=== PATIENT | male | born 1985 | race Caucasian/White ===

== ENCOUNTER → 2023-06-23 | Emergency (ER) | payer SELFPAY ==
[~2023-06-23] MED LIST: KETOROLAC 30 MG/ML INJ ONE; LORazepam 2 MG/ML VIAL ONE; NA CHLORIDE 0.9% 1,000 ML ONE
--- OUTSIDE RECORDS SUMMARY | 2023-06-23 19:58 | XMS REPORT | Continuity of Care Document ---
Author Name Unknown Address [address] [place] [address] [facility] [address] [place] [address] Care Team Providers Care Community Development Worker Name Role Phone Pcp, Patient Does Not Have A Primary Care Physic laquita BHARAT MONROY Attending Clinician Unavaila Bharat Colin MD Attending Clinician David Newman MD Attending Clinician [phone] DAVID NEWMAN Admitting Clinician Unavailable Allergies, Adverse Reactions, Alerts Allergy Name Allergy Type Status Severity Reaction(s) Onset Date Inactive Date Treating Clinician Comments Source SULFAMET HOXAZOLE -TRIMETH OPRIM DRUG Active [facility] 10-21 00:00: 00 [facility] Sulfamet hoxazole -Trimeth oprim Propensi ty to adverse reaction s Active [facility]10-21 00:00: 00 [facility] NO KNOWN ALLERGIE S Drug Class Active [facility] Social History Social Habit Start Date Stop Date Quantity Comments Source Exposure to SARS-CoV-2 (event) 2022-10-11 00:00:00 2022-10-21 14:54:00 Not sure [facility] Sex Assigned At 1985 00:00:00 1985 00:00:00 [facility] Smoking Status Start Date Stop Date Source Tobacco smoking consumption unknown [facility] Medications Ordered Medication Name Filled Medication Name Start Date Stop Date Current Medication? Ordering Clinician Indication Dosage Frequency Signature (SIG) Comments Components Source LORazepam (ATIVAN) injection 2 mg 10-21 22:30: 00 10-21 22:20 :00 No 2mg 2 mg, Slow IV Push, ONCE, 1 dose, On Liset 10/21/22 at 1730, Routine [facility] FENTanyl PF (SUBLIMAZE (PF)) injection 25 mcg 10-21 22:30: 00 10-21 22:19 :00 No 25ug 25 mcg, Slow IV Push, ONCE, 1 dose, On Liset 10/21/22 at 1730, Routine [facility] lidocaine 1% (PF) (XYLOCAINE) injection 20 mL 10-21 22:30: 00 10-21 22:21 :00 No 20mL 20 mL, Infiltrati on, ONCE, 1 dose, On Liset 10/21/22 at 1730, Routine [facility] PHENYLephri ne 1000 mcg/10 mL in 0.9% NaCl syringe 1,000 mcg 10-21 21:45: 00 10-21 22:20 :00 No 10mL 1,000 mcg (10 mL), Intramuscu lar, ONCE, 1 dose, On Liset 10/21/22 at 1700, FRANCIA [facility] morpHINE (4 mg/mL) injection 4 mg 10-21 20:30: 00 10-21 21:26 :00 No 4mg 4 mg, Slow IV Push, ONCE, 1 dose, On Liset 10/21/22 at 1530, STAT [facility] terbutaline (BRETHINE) injection 0.5 mg 10-21 20:22: 50 Yes .5mg 0.5 mg, Subcutaneo us, Q20MIN PRN, 2 doses, Starting on Liset 10/21/22 at 1522, Until Discontinu ed, FRANCIA, priapism [facility] ciprofloxac in HCl 500 mg tablet 10-21 00:00: 00 Yes [id number] 500mg Take 1 tablet by mouth in the morning and 1 tablet in the evening. [facility] ciprofloxac in HCl 500 mg tablet 10-21 00:00: 00 10-21 00:00 :00 No [id number] 500mg Take 1 tablet by mouth in the morning and 1 tablet in the evening. Do all this for 21 days. [facility] cefTRIAXone (ROCEPHIN) 1,000 mg in NaCl 0.9% (NS) 100 mL MINI-BAG 10-14 12:00: 00 10-14 12:38 :00 No 1000mg 1,000 mg, IV Piggyback, ONCE, 1 dose, On Liset 10/14/22 at 0700, Administer over 30 Minutes, 100 mL
Reas on for Anti-Infec tive: Documented Infection< br>Documen tereso Infection Site: Other
O ther site: prostate<b r>Duration of Therapy: 7 days [facility] NaCl 0.9% (NS) bolus infusion 1,000 mL 10-14 10:30: 00 10-14 11:23 :00 No 1000mL at 999 mL/hr, 1,000 mL, IV Infusion, ONCE, 1 dose, On Liset 10/14/22 at 0530, FRANCIA [facility] clonazePAM (KLONOPIN) tablet 1 mg 10-14 10:30: 00 10-14 09:55 :00 No 1mg 1 mg, Oral, ONCE, 1 dose, On Liset 10/14/22 at 0530, FRANCIA [facility] iohexol (OMNIPAQUE 350 BULK-100 mL) injection 80 mL 10-14 10:27: 00 10-14 10:27 :00 No [id number] 80mL 80 mL, Intravenou s, ONCE, 1 dose, On Liset 10/14/22 at 0545, Routine [facility] ibuprofen (IBU) tablet 600 mg 10-14 09:45: 00 10-14 09:54 :00 No 600mg 600 mg, Oral, ONCE, 1 dose, On Liset 10/14/22 at 0445, FRANCIA [facility] ibuprofen 600 mg tablet 10-14 00:00: 00 Yes [id number] 600mg Take 1 tablet by mouth every 6 (six) hours as needed for Pain (scale 1-3) or Pain (scale 4-6). [facility] CLONAZEPAM 1 mg tablet 10-14 00:00: 00 Yes [id number] 1mg Take 1 tablet by mouth 3 (three) times daily with meals as needed for Insomnia (anxiety). [facility] ibuprofen 600 mg tablet 10-14 00:00: 00 Yes [id number] 600mg Take 1 tablet by mouth every 6 (six) hours as needed for Pain (scale 1-3) or Pain (scale 4-6). [facility] CLONAZEPAM 1 mg tablet 10-14 00:00: 00 Yes [id number] 1mg Take 1 tablet by mouth 3 (three) times daily with meals as needed for Insomnia (anxiety). [facility] tamsulosin 0.4 mg 24 hr capsule 10-14 00:00: 00 11-12 04:59 :00 No [id number] .4mg Take 1 capsule by mouth at bedtime for 28 days. [facility] tamsulosin 0.4 mg 24 hr capsule 10-14 00:00: 00 11-12 04:59 :00 No [id number] .4mg Take 1 capsule by mouth at bedtime for 28 days. [facility] SULFAMETHOX AZOLE-TRIME THOPRIM 800-160 mg per tablet 10-14 00:00: 00 11-05 04:59 :00 No [id number] 1{tbl} Take 1 tablet by mouth every 12 (twelve) hours for 21 days. [facility] SULFAMETHOX AZOLE-TRIME THOPRIM 800-160 mg per tablet 10-14 00:00: 00 10-21 00:00 :00 No [id number] 1{tbl} Take 1 tablet by mouth every 12 (twelve) hours for 21 days. [facility] Vital Signs Vital Name Observation Time Observation Value Comments S glendy Systolic blood pressure 2022-10-21 23:00:00 102 mm[Hg] [facility] Diastolic blood pressure 2022-10-21 23:00:00 73 mm[Hg] [facility] Heart rate 2022-10-21 23:00:00 110 /min [facility] Respiratory rate 2022-10-21 23:00:00 18 /min [facility] Oxygen saturation in Arterial blood by Pulse oximetry 2022-10-21 23:00:00 100 /min [facility] Body weight 2022-10-21 20:00:00 77.111 kg [facility] Body temperature 2022-10-21 19:54:00 37.39 Jennifer [facility] Systolic blood pressure 2022-10-14 13:19:08 98 mm[Hg] [facility] Diastolic blood pressure 2022-10-14 13:19:08 58 mm[Hg] [facility] Heart rate 2022-10-14 13:19:08 88 /min [facility] Respiratory rate 2022-10-14 13:19:08 18 /min [facility] Oxygen saturation in Arterial blood by Pulse oximetry 2022-10-14 13:19:08 98 /min [facility] Body temperature 2022-10-14 08:47:00 36.78 Jennifer [facility] Body weight 2022-10-14 08:47:00 77.111 kg [facility] Procedures Procedure Date / Time Performed Performing Clinicia n Source ACUTE CARE VENOUS BLOOD GAS 2022-10-21 22:59:00 Luigi Mobley [facility] ACUTE CARE VENOUS BLOOD GAS 2022-10-21 22:36:00 Luigi Mobley [facility] URINALYSIS 2022-10-21 20:59:00 [facility] ([id number]) 2022-10-21 20:37:00 Bharat Monroy [facility] CBC WITH DIFF 2022-10-21 20:37:00 Bharat Monroy [facility] CONSENT/REFUSAL FOR DIAGNOSIS AND TREATMENT 2022-10-21 19:52:33 Doctor Unassigned, [place] [facility] CT ABDOMEN PELVIS W CONTRAST 2022-10-14 10:37:13 David Newman [facility] BASIC METABOLIC PANEL (NA, K, CL, CO2, GLUCOSE, BUN, CREATININE, CA) 2022-10-14 09:54:00 David Newman [facility] CBC WITH DIFF 2022-10-14 09:54:00 David Newman [facility] URINALYSIS 2022-10-14 09:54:00 RussellajayDavid bullock [facility] Encounters Start Date/Time End Date/Time Encounter Type Admission Type Attending [facility] Facility Care Department Encounter ID Source 2022-10-21 14:58:00 2022-10-21 18:45:00 Emergency X BHARAT MONROY [facility] ERT [id number] [facility] 2022-10-21 14:58:00 2022-10-21 18:45:00 Emergency Bharat Monroy [facility] [id number] [id number] [facility] 2022-10-14 03:50:00 2022-10-14 09:11:00 Emergency GildardoaraDavidBharat crystal [facility] [id number] 014 [id number] [facility] 2022-10-14 03:50:00 2022-10-14 09:11:00 Emergency Pina MONROY BHARAT [facility] ERT [id number] [facility] Results Test Description Test Time Test Comments Results Result Co mments Source [facility] CARE VENOUS BLOOD [id number] 22:42:43 * Test Item Value Reference Range Interpretation Comme nts PH (test code = 1480724684) 6.84 7.32-7.42 LL PCO2 ODALIS (test code = 6378884305) 123 See_Comment H [Automated messa ge] The system which generated this result transmitted reference range: 41 - 51 mmHg. The reference range was not used to interpret this result as normal/abnormal. PO2 ODALIS (test code = 8140102278) 33 See_Comment [Automated messa ge] The system which generated this result transmitted reference range: 25 - 40 mmHg. The reference range was not used to interpret this result as normal/abnormal. HCO3 ODALIS (test code = 4284438714) 20 See_Comment L [Automated messa ge] The system which generated this result transmitted reference range: 24 - 28 mEq/L. The reference range was not used to interpret this result as normal/abnormal. AC VBE(BEAKER) (test code = 0117925100) -16.6 mEq/L Lab Interpretation (test code = 00784-7) Abnormal [facility]. METABOLIC PANEL ([id number])2022-10-21 21:09:48* Test Item Value Reference Range Interpretation Comme nts NA (test code = 7662299807) 138 mmol/L 135-145 K (test code = 1301122209) 4.4 mmol/L 3.5-5.0 CL (test code = 5242931338) 101 mmol/L 98-108 CO2 TOTAL (test code = 3034872513) 29 mmol/L 23-31 AGAP (test code = 5667475816) 8 2-16 BUN (test code = 4353940117) 12 mg/dL 7-23 GLUCOSE (test code = 2074864831) 108 mg/dL 70-110 CREATININE (test code = 0540944281) 0.89 mg/dL 0.60-1.25 TOTAL BILI (test code = 0349520882) 0.5 mg/dL 0.1-1.1 CALCIUM (test code = 0025348904) 8.7 mg/dL 8.6-10.6 T PROTEIN (test code = 7973145269) 6.8 g/dL 6.3-8.2 ALBUMIN (test code = 4544464467) 3.5 g/dL 3.5-5.0 ALK PHOS (test code = 9719536076) 61 U/L 34-122 ALTv (test code = 1742-6) 15 U/L 5-50 AST(SGOT) (test code = 8606717674) 16 U/L 13-40 eGFR (test code = 0215151086) 95.7 mL/min/1.73m2 ORLIN (test code = ORLIN) Association of Glomerular Filtration Rate (GFR) and Staging of Kidney Disease* + + +- +| GFR (mL/min/1.73 m2) ?| With Kidney Damage ?| ?Without Kidney Damage+ ------+ ----+ ------+| ?>90 ?| ?Stage one ?| ? Normal ?+ -+ + -+| ?60-89 ?| ?Stage two ?| ? Decreased GFR ? + + +- +| ?30-59 ?| ?Stage three ?| ? Stage three ? + + +- +| ?15-29 ?| ?Stage four ? | ? Stage four ?+ -+ + -+| ?<15 (or dialysis) ? ?| ?Stage five ? | ? Stage five ?+ -+ + -+ *Each stage assumes the associated GFR level has been in effect for at least three months. ?Stages 1 to 5, with or without kidney disease, indicate chronic kidney disease. Notes: Determination of stages one and two (with eGFR >59mL/min/1.73 m2) requires estimation of kidney damage for at least three months as defined by structural or functional abnormalities of the kidney, manifested by either:Pathological abnormalities or Markers of kidney damage (including abnormalities in the composition of the blood or urine or abnormalities in imaging tests). [facility] WITH [id number] 20:54:27* Test Item Value Reference Range Interpretation Comme nts WBC (test code = 6690-2) 9.28 See_Comment [BringShare] The system which generated this result transmitted reference range: 4.20 - 10.70 10*3/?L. The reference range was not used to interpret this result as normal/abnormal. RBC (test code = 789-8) 3.67 See_Comment L [Automated PeriphaGen] The system which generated this result transmitted reference range: 4.26 - 5.52 10*6/?L. The reference range was not used to interpret this result as normal/abnormal. HGB (test code = 718-7) 11.3 g/dL 12.2-16.4 L HCT (test code = 4544-3) 32.9 % 38.4-49.3 L MCV (test code = 787-2) 89.6 fL 81.7-95.6 MCH (test code = 785-6) 30.8 pg 26.1-32.7 MCHC (test code = 786-4) 34.3 g/dL 31.2-35.0 RDW-SD (test code = 33722-0) 40.1 fL 38.5-51.6 RDW-CV (test code = 788-0) 12.3 % 12.1-15.4 PLT (test code = 777-3) 350 See_Comment H [Automated messa ge] The system which generated this result transmitted reference range: 150 - 328 10*3/?L. The reference range was not used to interpret this result as normal/abnormal. MPV (test code = 93723-5) 8.6 fL 9.8-13.0 L NRBC/100 WBC (test code = 3633450372) 0.0 See_Comment [Automated EternoGen ssage] The system which generated this result transmitted reference range: 0.0 - 10.0 /100 WBCs. The reference range was not used to interpret this result as normal/abnormal. NRBC x10^3 (test code = 8426782165) See_Comment [Automated messa ge] The system which generated this result transmitted reference range: 10*3/?L. The reference range was not used to interpret this result as normal/abnormal. GRAN MAT (NEUT) % (test code = 770-8) 78.4 % IMM GRAN % (test code = 0754726465) 0.50 % LYMPH % (test code = 736-9) 12.8 % MONO % (test code = 5905-5) 7.0 % EOS % (test code = 713-8) 1.2 % BASO % (test code = 706-2) 0.1 % GRAN MAT x10^3(ANC) (test code = 8786170582) 7.27 10*3/uL 1.99-6.95 H IMM GRAN x10^3 (test code = 9479451388) 0.05 10*3/uL 0.00-0.06 LYMPH x10^3 (test code = 731-0) 1.19 10*3/uL 1.09-3.23 MONO x10^3 (test code = 742-7) 0.65 10*3/uL 0.36-1.02 EOS x10^3 (test code = 711-2) 0.11 10*3/uL 0.06-0.53 BASO x10^3 (test code = 704-7) 0.01-0.09 Lab Interpretation (test code = 72551-1) Abnormal [facility] METABOLIC PANEL (NA, K, CL, CO2, GLUCOSE, BUN, CREATININE, CA)2022-10-14 10:24:40* Test Item Value Reference Range Interpretation Comme nts NA (test code = 0841230760) 140 mmol/L 135-145 K (test code = 6595055274) 4.3 mmol/L 3.5-5.0 CL (test code = 9358165340) 101 mmol/L 98-108 CO2 TOTAL (test code = 2604356983) 31 mmol/L 23-31 AGAP (test code = 7850850120) 8 2-16 BUN (test code = 9857557906) 17 mg/dL 7-23 GLUCOSE (test code = 3083046635) 93 mg/dL 70-110 CREATININE (test code = 4326344622) 0.81 mg/dL 0.60-1.25 CALCIUM (test code = 6096942301) 8.8 mg/dL 8.6-10.6 eGFR (test code = 8943522687) 106.6 mL/min/1.73m2 ORLIN (test code = ORLIN) Association of Glomerular Filtration Rate (GFR) and Staging of Kidney Disease* + + +- +| GFR (mL/min/1.73 m2) ?| With Kidney Damage ?| ?Without Kidney Damage+ ------+ ----+ ------+| ?>90 ?| ?Stage one ?| ? Normal ?+ -+ + -+| ?60-89 ?| ?Stage two ?| ? Decreased GFR ? + + +- +| ?30-59 ?| ?Stage three ?| ? Stage three ? + + +- +| ?15-29 ?| ?Stage four ? | ? Stage four ?+ -+ + -+| ?<15 (or dialysis) ? ?| ?Stage five ? | ? Stage five ?+ -+ + -+ *Each stage assumes the associated GFR level has been in effect for at least three months. ?Stages 1 to 5, with or without kidney disease, indicate chronic kidney disease. Notes: Determination of stages one and two (with eGFR >59mL/min/1.73 m2) requires estimation of kidney damage for at least three months as defined by structural or functional abnormalities of the kidney, manifested by either:Pathological abnormalities or Markers of kidney damage (including abnormalities in the composition of the blood or urine or abnormalities in imaging tests). [facility] WITH [id number] 10:10:41* Test Item Value Reference Range Interpretation Comme nts WBC (test code = 6690-2) 10.73 See_Comment H [Automated [employer] Kido[employer]en] The system which generated this result transmitted reference range: 4.20 - 10.70 10*3/?L. The reference range was not used to interpret this result as normal/abnormal. RBC (test code = 789-8) 4.25 See_Comment L [Automated messa KidoZen] The system which generated this result transmitted reference range: 4.26 - 5.52 10*6/?L. The reference range was not used to interpret this result as normal/abnormal. HGB (test code = 718-7) 12.9 g/dL 12.2-16.4 HCT (test code = 4544-3) 38.2 % 38.4-49.3 L MCV (test code = 787-2) 89.9 fL 81.7-95.6 MCH (test code = 785-6) 30.4 pg 26.1-32.7 MCHC (test code = 786-4) 33.8 g/dL 31.2-35.0 RDW-SD (test code = 08337-8) 39.8 fL 38.5-51.6 RDW-CV (test code = 788-0) 12.2 % 12.1-15.4 PLT (test code = 777-3) 360 See_Comment H [Automated [employer]] The system which generated this result transmitted reference range: 150 - 328 10*3/?L. The reference range was not used to interpret this result as normal/abnormal. MPV (test code = 46905-2) 8.4 fL 9.8-13.0 L NRBC/100 WBC (test code = 2200781656) 0.0 See_Comment [Automated me ssage] The system which generated this result transmitted reference range: 0.0 - 10.0 /100 WBCs. The reference range was not used to interpret this result as normal/abnormal. NRBC x10^3 (test code = 9541772813) See_Comment [Automated messa ge] The system which generated this result transmitted reference range: 10*3/?L. The reference range was not used to interpret this result as normal/abnormal. GRAN MAT (NEUT) % (test code = 770-8) 67.7 % IMM GRAN % (test code = 5646357299) 0.50 % LYMPH % (test code = 736-9) 23.2 % MONO % (test code = 5905-5) 6.4 % EOS % (test code = 713-8) 1.9 % BASO % (test code = 706-2) 0.3 % GRAN MAT x10^3(ANC) (test code = 1846078680) 7.27 10*3/uL 1.99-6.95 H IMM GRAN x10^3 (test code = 7757784279) 0.05 10*3/uL 0.00-0.06 LYMPH x10^3 (test code = 731-0) 2.49 10*3/uL 1.09-3.23 MONO x10^3 (test code = 742-7) 0.69 10*3/uL 0.36-1.02 EOS x10^3 (test code = 711-2) 0.20 10*3/uL 0.06-0.53 BASO x10^3 (test code = 704-7) 0.03 10*3/uL 0.01-0.09 Lab Interpretation (test code = 76897-7) Abnormal [facility]"
[2023-06-23 21:11] LABS: Absolute Lymphocytes (CBC) 1.6 K/uL (0.7-4.9); Hematocrit 41.2 % (39.6-49.0); Lymphocytes % 22.5 % (15.3-44.8); MCV 90.5 fL (80-100); MPV 7.3 fL (7.6-11.3); Platelets 270 thou/uL (152-406); RBC Red Blood Cell Count 4.56 M/uL (4.33-5.43)
[2023-06-23 21:23] LABS: Specific Gravity 1.024 (1.005-1.030); Urine Bacteria None Seen /HPF (<20); Urine Bilirubin NEGATIVE (Negative); Urine Blood Negative (Negative); Urine Clarity Clear (Clear); Urine Color Light-Yellow (Yellow); Urine Glucose NEGATIVE (Negative); Urine Mucus Slight /HPF (None Seen); Urine Protein NEGATIVE (Negative); Urine RBC <5 /HPF (None Seen); Urine Urobilinogen Normal (Normal)
[2023-06-23 21:28] LABS: Barbiturates NEGATIVE (NEGATIVE); Benzodiazepines NEGATIVE (NEGATIVE); Cocaine NEGATIVE (NEGATIVE); METHAMPHETAM NEGATIVE (NEGATIVE); Methadone NEGATIVE (NEGATIVE); Opiates NEGATIVE (NEGATIVE); Phencyclidine NEGATIVE (NEGATIVE); THC Cannibis NEGATIVE (NEGATIVE)
[2023-06-23 21:32] LABS: Albumin 3.9 g/dL (3.4-5.0); Bilirubin Total 0.5 mg/dL (0.2-1.0); Potassium 3.8 mEq/L (3.5-5.1); Protein, Total 7.6 g/dL (6.4-8.2)
--- NOTE | 2023-06-23 23:53 | EDPHYS ---
Physician Documentation [facility] Name: Rony Ford III Age: 38 yrs Sex: Male : 1985 Arrival Date: 06/23/2023 Time: 19:55 Bed 20 Private MD: ED Physician Dov Vega HPI: 06/23 21:00 This 38 yrs old Male presents to ER via Ambulatory with complaints of High Blood cp Pressure. 21:00 The patient has elevated blood pressure and discovered this at home, with a home device.cp 21:00 Severity of symptoms: At its worst the blood pressure was 140 mm Hg. Patient is a cp 38-year-old male with a past medical history significant for anxiety who presents to the emergency department with concern for elevated blood pressure. He reports a blood pressure reading of 140/100 at home, felt like he was anxious and so he came to the emergency department for evaluation. 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 Patient reports she was prescribed 30 days worth of antibiotics and instructed to follow-up with the urologist but never followed up. He reports the physician told him he may need to be on antibiotics for up to 6 months and so he is concerned of a possible recurrence of a prostate abscess. He denies any fevers, chills and/or pain with urination but reports concern about lack of having the urge to urinate. Historical: - Allergies: 20:26 No Known Allergies; km8 - Home Meds: 20:26 None [Active]; km8 - PMHx: 20:26 Anxiety; km8 - PSHx: 20:26 right arm; km8 - Immunization history:: Client reports receiving the 2nd dose of the Covid vaccine, Flu vaccine is not up to date. - Social history:: Smoking status: Patient reports use of chewing tobacco. Patient/guardian denies using tobacco, Stopped _ months ago 1 Patient uses alcohol, but reports only rare drinking. Patient/guardian denies using street drugs. ROS: 21:05 Cardiovascular: Negative for chest pain, edema, palpitations, cp 21:05 Eyes: Negative for injury, pain, redness, and discharge, cp 21:05 Constitutional: Negative for body aches, chills, fever, poor PO intake, 21:05 ENT: Negative for ear pain, sore throat, 21:05 Respiratory: Negative for cough, shortness of breath, wheezing, 21:05 Abdomen/GI: Positive for abdominal pain, of the suprapubic area, Negative for vomiting, diarrhea, constipation, 21:05 : Negative for hematuria, burning with urination, difficulty urinating, foul smelling urine, testicular pain 21:05 Neuro: Negative for altered mental status, headache, syncope, weakness, 21:05 All other systems are negative, cp Exam: 21:10 Constitutional: The patient appears in no acute distress, alert, awake, non-toxic, well cp developed, well nourished, anxious, 21:10 Head/Face: Normocephalic, atraumatic. cp 21:10 Eyes: Periorbital structures: appear normal, Conjunctiva: normal, no exudate, no injection, Sclera: no appreciated abnormality, Lids and lashes: appear normal, bilaterally, 21:10 ENT: External ear(s): are unremarkable, Nose: is normal, Mouth: Lips: moist, Oral mucosa: moist, Posterior pharynx: Airway: no evidence of obstruction, patent, 21:10 Chest/axilla: Inspection: normal, 21:10 Cardiovascular: Rate: normal, Rhythm: regular, Edema: is not appreciated, JVD: is not appreciated, 21:10 Respiratory: the patient does not display signs of respiratory distress, Respirations: normal, no use of accessory muscles, no retractions, labored breathing, is not present, Breath sounds: are clear throughout, no decreased breath sounds, no stridor, no wheezing, 21:10 Abdomen/GI: Inspection: abdomen appears normal, Bowel sounds: active, all quadrants, Palpation: soft, in all quadrants, mild abdominal tenderness, in the suprapubic area, rebound tenderness, is not appreciated, involuntary guarding, is not appreciated, 21:10 Back: pain, is absent, ROM is normal, 21:10 Neuro: Orientation: to person, place \T\ time. Mentation: is normal, Cerebellar function: is grossly normal, Motor: moves all fours, strength is normal, Sensation: is normal, Vital Signs: 20:22 BP 145 / 85; Pulse 98; Resp 16; Temp 97.9(IR); Pulse Ox 100% on R/A; Weight 99.79 kg km8 (R); Height 5 ft. 11 in. ; Pain 4/10; 21:00 BP 149 / 88; Pulse 82; Resp 17; Pulse Ox 98% on R/A; nw1 20:22 Body Mass Index 30.68 (99.79 kg, 180.34 cm) [facility] 20:22 Pain Scale: Adult [facility] [place] Coma Score: 21:16 Eye Response: spontaneous(4). Motor Response: obeys commands(6). Verbal Response: nw1 oriented(5). Total: 15. MDM: 20:33 Patient medically screened. cp 23:51 Data reviewed: vital signs, nurses notes, lab test result(s), EKG, radiologic studies, cp CT scan. 23:51 Differential diagnosis: hypertensive crisis, Malignant HTN, sepsis, uti, anxiety. I cp considered the following discharge prescriptions or medication management in the emergency department Medications were administered in the Emergency Department. See MAR. Counseling: I had a detailed discussion with the patient and/or guardian regarding the historical points, exam findings, and any diagnostic results supporting the discharge/admit diagnosis, lab results, radiology results, the need for outpatient follow up, a family practitioner, a urologist, to return to the emergency department if symptoms worsen or persist or if there are any questions or concerns that arise at home. Response to treatment: the patient's symptoms have markedly improved after treatment, and as a result, I will discharge patient. 06/23 20:34 Order name: Urine W/Microscopic (UAM); Complete Time: 21:49 06/23 21:50 Interpretation: Reviewed. 06/23 20:45 Order name: CBC with Diff; Complete Time: 21:49 06/23 21:49 Interpretation: Normal except: MPV 7.3. 06/23 20:45 Order name: CMP; Complete Time: 21:49 06/23 21:49 Interpretation: Normal except: GLUC 126; BUN 20; GFR 79; GLOB 3.7. 06/23 20:45 Order name: Lipase; Complete Time: 21:49 06/23 20:45 Order name: UDS; Complete Time: 21:49 06/23 21:50 Interpretation: Reviewed. 06/23 23:49 Order name: Urine Culture 06/23 21:28 Order name: CT Abd/Pelvis - IV Contrast Only cp 06/23 20:45 Order name: EKG; Complete Time: 20:46 cp 06/23 20:45 Order name: EKG - Nurse/Tech; Complete Time: 20:54 cp 06/23 20:45 Order name: IV Saline Lock; Complete Time: 20:54 cp 06/23 20:45 Order name: Labs collected and sent; Complete Time: 20:54 cp Administered Medications: 21:01 Drug: NS 0.9% IV 1000 ml IV at 1 bolus Per protocol; 1000 mL bolus Route: IV; Rate: 1 kd3 bolus; Site: left antecubital; 21:01 Drug: TORadol - Ketorolac IVP 15 mg IVP once Route: IVP; Site: left antecubital; kd3 21:01 Drug: Ativan IVP 1 mg IVP once Route: IVP; Site: left antecubital; kd3 Disposition Summary: 06/23/23 23:52 Discharge Ordered Notes: Location: Home cp Problem: new cp Symptoms: have improved cp Condition: Stable cp Diagnosis - Anxiety disorder, unspecified cp - Other symptoms and signs involving the genitourinary system cp - Elevated blood-pressure reading, without diagnosis of hypertension cp Followup: cp - With: Private Physician - When: 2 - 3 days - Reason: Recheck today's complaints Followup: cp - With: Bebeto Zimmerman MD - When: 1 week - Reason: urinary symptoms Discharge Instructions: - Discharge Summary Sheet cp - How to Take Your Blood Pressure, [id number] cp - Urinary Frequency, Adult cp - Generalized Anxiety Disorder, Adult cp - Form - Blood Pressure Record Sheet cp - Managing Anxiety, Adult cp Forms: - Medication Reconciliation Form cp - Thank You Letter cp - Antibiotic Education cp - Prescription Opioid Use cp - Patient Portal Instructions cp - Leadership Thank You Letter cp Prescriptions: - Vistaril 25 mg Oral capsule - take 1 capsule ORAL route every 6-8 hours as needed for anxiety; 30 capsule; cp Refills: 0, Product Selection Permitted Addendum: 06/27/2023 09:25 Co-signature as Attending Physician, Dov Vega MD I reviewed the patient's care r t provided by the Advanced Practice Provider and agree with the diagnosis and treatment plan. Signatures: Dispatcher [employer] EDMN Genaro Naranjo PA PA cp Doucette, Joceline, RN RN kd3 Dov Vega MD MD rt Sahra Barrios RN RN km8 Corrections: (The following items were deleted from the chart) 06/23 20:27 20:26 PMHx: None; km8 km8 06/24 22:53 06/23 21:05 All other systems are negative, cp cp
--- NOTE | 2023-06-23 23:53 | ER ---
Nurse's Notes [facility] Name: Rony Ford III Age: 38 yrs Sex: Male : 1985 Arrival Date: 06/23/2023 Time: 19:55 Bed 20 Private MD: Diagnosis: Anxiety disorder, unspecified;Other symptoms and signs involving the genitourinary system;Elevated blood-pressure reading, without diagnosis of hypertension Presentation: 06/23 20:22 Chief complaint: Patient states: pt reports high blood pressure reading today of km8 145/100; taken off clonidine 2 months ago; has hx of anxiety; reports CP starting today; pt also reports prostate issues a few months ago, was treated with ABX but feels "it's back"; having difficulty urinating and with sex;. Coronavirus screen: Client denies travel out of the [place] in the last 14 days. Ebola Screen: No symptoms or risks identified at this time. Initial Sepsis Screen: Does the patient meet any 2 criteria? HR > 90 bpm. Does the patient have a suspected source of infection? No. Patient's initial sepsis screen is negative. Risk Assessment: Do you want to hurt yourself or someone else? Patient reports no desire to harm self or others. Onset of symptoms was June 22, 2023. 20:22 Method Of Arrival: Ambulatory km8 20:22 Acuity: MAURIZIO 3 km8 Triage Assessment: 20:26 General: Appears in no apparent distress. Behavior is cooperative, appropriate for age, km8 anxious. Pain: Complains of pain in chest Pain currently is 4 out of 10 on a pain scale. EENT: No signs and/or symptoms were reported regarding the EENT system. Neuro: Level of Consciousness is awake, alert, obeys commands, Oriented to person, place, time, situation. Cardiovascular: Reports chest pain, Capillary refill < 3 seconds Patient's skin is warm and dry. Respiratory: Airway is patent Respiratory effort is even, unlabored, Respiratory pattern is regular, symmetrical. GI: No signs and/or symptoms were reported involving the gastrointestinal system. : Reports inability to void. Derm: Skin is intact, is healthy with good turgor, Skin is dry, Skin is pink, warm \\T\\ dry. normal, Skin temperature is warm. Musculoskeletal: No signs and/or symptoms reported regarding the musculoskeletal system. Range of motion: intact in all extremities. Historical: - Allergies: 20:26 No Known Allergies; km8 - Home Meds: 20:26 None [Active]; km8 - PMHx: 20:26 Anxiety; 8 - PSHx: 20:26 right arm; km8 - Immunization history:: Client reports receiving the 2nd dose of the Covid vaccine, Flu vaccine is not up to date. - Social history:: Smoking status: Patient reports use of chewing tobacco. Patient/guardian denies using tobacco, Stopped _ months ago 1 Patient uses alcohol, but reports only rare drinking. Patient/guardian denies using street drugs. Screenin:16 [facility] ED Fall Risk Assessment (Adult) History of falling in the last 3 months, nw1 including since admission No falls in past 3 months (0 pts) Confusion or Disorientation No (0 pts) Intoxicated or Sedated No (0 pts) Impaired Gait No (0 pts) Mobility Assist Device Used No (0 pt) Altered Elimination No (0 pt) Score/Fall Risk Level 0 - 2 = Low Risk Oriented to surroundings, Maintained a safe environment, Educated pt \\T\\ family on fall prevention, incl call for assistance when getting out of bed, Assessed \\T\\ reinforced patient's understanding of fall precautions, Provided non-skid footwear, Hourly rounding (assess needs \\T\\ fall precautionary measures) done. Abuse screen: Denies threats or abuse. Denies injuries from another. Nutritional screening: No deficits noted. Tuberculosis screening: No symptoms or risk factors identified. Assessment: 21:00 Reassessment: Pt noted in room. No report received. Introductions made. IV placed and nw1 medication administered. Pt tolerated all well. Pt states history of anxiety and states he had an anxiety attack after checking his blood pressure. Pt states that "while he is here in the emergency department he might as well have his prostate abscess evaluated". Pt states he was "diagnosed with an infected abscess in prostates 3 months ago and was to have a 6 month antibiotic regimen". Pt states that he has only taken one month of his antibiotics due to not following up with PCP. S.O at bedside. Call light in reach. Lights dimmed. VSS. 0 s/s of acute distress noted at this time. Will continue to monitor. Vital Signs: 20:22 BP 145 / 85; Pulse 98; Resp 16; Temp 97.9(IR); Pulse Ox 100% on R/A; Weight 99.79 kg km8 (R); Height 5 ft. 11 in. ; Pain 4/10; 21:00 BP 149 / 88; Pulse 82; Resp 17; Pulse Ox 98% on R/A; nw1 20:22 Body Mass Index 30.68 (99.79 kg, 180.34 cm) km8 20:22 Pain Scale: Adult [facility] [place] Coma Score: 21:16 Eye Response: spontaneous(4). Motor Response: obeys commands(6). Verbal Response: nw1 oriented(5). Total: 15. ED Course: 20:00 Patient arrived in ED. gm2 20:13 Genaro Naranjo PA is PHCP. cp 20:13 Dov Vega MD is Attending Physician. cp 20:26 Triage completed. km8 20:26 Arm band placed on right wrist. km8 20:55 Urine W/Microscopic (UAM) Sent. ls5 20:55 UDS Sent. ls5 20:55 CBC with Diff Sent. ls5 20:55 CMP Sent. ls5 20:55 Lipase Sent. ls5 20:55 Inserted saline lock: 20 gauge in left antecubital area, using aseptic technique. Blood ls5 collected. 21:07 Meghan Mei, RN is Primary Nurse. nw1 21:16 Patient has correct armband on for positive identification. Placed in gown. Bed in low nw1 position. Call light in reach. Side rails up X2. Adult w/ patient. Provided Education on: POC/Medication administration. . Client placed on continuous cardiac and pulse oximetry monitoring. NIBP monitoring applied. monitoring tech on. Pulse ox on. NIBP on. 21:16 No provider procedures requiring assistance completed. nw1 22:59 CT Abd/Pelvis - IV Contrast Only In Process Unspecified. EDMS 23:49 Bebeto Zimmerman MD is Referral Physician. cp 06/24 00:14 IV discontinued, intact, bleeding controlled, No redness/swelling at site. Pressure nw1 dressing applied. Administered Medications: 06/23 21:01 Drug: NS 0.9% IV 1000 ml IV at 1 bolus Per protocol; 1000 mL bolus Route: IV; Rate: 1 kd3 bolus; Site: left antecubital; 21:01 Drug: TORadol - Ketorolac IVP 15 mg IVP once Route: IVP; Site: left antecubital; kd3 21:01 Drug: Ativan IVP 1 mg IVP once Route: IVP; Site: left antecubital; kd3 Medication: 21:16 VIS not applicable for this client. nw1 Outcome: 23:52 Discharge ordered by MD. hutton 06/24 00:14 Discharged to home ambulatory, nw1 Condition: stable Discharge instructions given to patient, Instructed on discharge instructions, follow up and referral plans. medication usage, Demonstrated understanding of instructions, follow-up care, medications, Prescriptions given X 1, 00:15 Patient left the ED. nw1 Signatures: Dispatcher [employer] EDMS Genaro Naranjo PA PA cp Doucette, Kyli RN RN kd3 Kee Coronado 5 Ada Ledezma 2 Sahra Barrios RN RN km8 Meghan Mei RN RN nw1 Corrections: (The following items were deleted from the chart) 06/23 20:27 20:26 PMHx: None; charity km8
[2023-06-24 07:50] VITALS: TEMP 97.9
[2023-06-24 08:00] VITALS: BP 149/88; O2SAT 98
--- NOTE | 2023-06-24 13:23 | EKG ---
Test Date: 2023-06-23 Test Time: 20:36:02 Equipment Service Engineer: GOMEZ MEASUREMENT RESULTS: Intervals: Rate: 88 [place]: 160 QRSD: 92 QT: 336 QTc: 406 [place]: P: 68 [place]: 160 QRS: 56 T: 72 INTERPRETIVE STATEMENTS: Normal sinus rhythm Normal ECG No previous ECG available for comparison Electronically Signed On 06-24-23 13:22:24 ASSISTANT FITNESS MANAGER by Quinten Vieyra
--- NOTE | 2023-06-24 22:44 | RAD REPORT ---
EXAM DESCRIPTION: CT - Abdomen Pelvis W Contrast - 06/24/2023 6:16 am CLINICAL HISTORY: 38 years Male suprapubic pain COMPARISON: None. TECHNIQUE: Contiguous axial images obtained through the abdomen and pelvis following IV contrast. Re formatted images obtained. This exam was performed according to our department optimization program which includes automated exp osure control, adjustment of the mA and/or kv according to patient size and/or use of iterative recon struction technique. FINDINGS: The lung bases are clear. Small hiatal hernia. The liver appears unremarkable. The spleen and pancreas appear unremarkable. No adrenal masses. The kidneys appear unremarkable. No hydronephrosis. The gallbladder is visualized. No aneurysmal dilatation of the aorta. No bowel obstruction. The appendix appears unremarkable. No significant free pelvic fluid. Fat-containing left inguinal hernia. Small fat-containing umbilical hernia. No acute osseous abnormality is identified. IMPRESSION: No acute intra-abdominal abnormality is identified. Electronically signed by: Vasu Hull MD 06/23/2023 11:24 PM CLIENT APPLICATION SUPPORT ENGINEER Due to temporary technical issues with the PACS/Fluency reporting system, reports are being signed by the in house radiologists without review as a courtesy to insure prompt reporting. The interpreting radiologist is fully responsible for the content of the report.
== END ==
LOC: ER 19:55
DX: F41.9 Anxiety disorder, unspecified (principal); R39.89 Other symptoms and signs involving the genitourinary system; R03.0 Elevated blood-pressure reading, without diagnosis of hypertension
CPT/HCPCS: 36415; 74177; 80053; 80307; 81001; 83690; 85025; 87086; 87088; 93005; 96374; 96375; 99285; J7030; Q9967